=== PATIENT | female | born 2000 | race Caucasian/White ===

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

== ENCOUNTER → 2018-05-19 17:07 | Emergency (ER) | payer OTHER ==
[~2018-05-19 17:07] MED LIST changes: -Ibuprofen TAB* 600 MG PO ONE; +Iohexol 300* (CONTRAST) 10 ML SDV IV ONE; +Ketorolac INJ* 30 MG/ML 1 ML VIAL IV PUSH ONE; +NS 0.9% 1000 ML* 1,000 ML IV ONE
--- OUTSIDE RECORDS SUMMARY | 2018-05-19 17:38 | XMS REPORT | Continuity of Care Document ---
:2000 External Reference #:[id number] Author Name Fany Waddell, JENNY Address [address] [facility] [place] [address] Care Team Providers Name Role Phone Edward Locke MD Care Team Information Decal Maker Unavailable Edward Locke MD Primary Care Physician Unavailable Payers Type Date Identification Numbers Payment Provider Subscriber Policy Number: [id number] [facility] Morris Frye Group Number: [id number] [address] [address] PayID: [id number] [place] [address] Advance Directives Description No Information Available Problems Description No Information Family History Date Family Member(s) Problem(s) Comments Mother Heart Disease Mother Gallstones Mother Ulcerative Colitis Social History Type Date Description Comments Sex Unknown Education Highest level completed, 12th grade Marital Status Single Lives With Mother And Father Occupation [employer] Tobacco Use Start: Unknown "Social" Smoker 1-2 cigarettes a month, uses vape daily but not all day, just a puff or two every 3-4 hours - no interest in quitting ETOH Use Denies alcohol use Recreational Drug Use Marijuana socially occasionally for anxiety Tobacco Use Start: Unknown Patient is a former End: Unknown smoker Smoking Status Reviewed: 05/08/18 Patient is a former smoker Currently Active Patient is currently sexually active Condom Use Always Allergies, Adverse Reactions, Alerts Date Description Reaction Status Severity Comments 08/17/2017 Penicillins Anaphylaxis Active 08/17/2017 Bactrim Anaphylaxis Active 08/17/2017 Cephlasporins Anaphylaxis Active 08/17/2017 Lexapro loss of memory Active Medications Medication Date Status Form Strength Qnty SIG Indications Ordering Provider Prozac Active Capsules 10mg 30caps 1/2 tab F33.1 Fany Moran 018 by mouth JENNY Waddell x 2 weeks then 1 by mouth every day Doxycycline Hx Capsules 100mg 20caps one tab L03.311 Fany Moran Hyclate 018 - twice a JENNY Waddell day for 018 10 days Control Hx Unknown Pill 000 - 018 Medications Administered in Office Medication Date Status Form Strength Qnty SIG Indications Ordering Provider Brief Administered Injection Fany Moran Emotional/Beha 018 JENNY Waddell v Assessment W/ Scoring Doc Per Standard Inst Immunizations Description No Information Available Vital Signs Date Vital Result Comment 05/08/2018 5:47pm BP Systolic 104 mmHg BP Diastolic 64 mmHg Heart Rate 84 /min Body Temperature 98.3 F Respiratory Rate 18 /min Height 60.5 inches 5'0.50" Weight 220.00 lb BMI (Body Mass Index) 42.3 kg/m2 Body Mass Index Percentile 99 % Weight Percentile >97th Height Percentile 7 % 12/22/2017 5:06pm BP Systolic 118 mmHg BP Diastolic 60 mmHg Heart Rate 72 /min Body Temperature 98.2 F Respiratory Rate 16 /min Height 60.5 inches 5'0.50" Weight 214.00 lb BMI (Body Mass Index) 41.1 kg/m2 Body Mass Index Percentile 99 % Weight Percentile >97th Height Percentile 7 % 11/08/2017 4:19pm BP Systolic 118 mmHg BP Diastolic 64 mmHg Heart Rate 76 /min Body Temperature 98.6 F Respiratory Rate 16 /min Height 60.5 inches 5'0.50" Weight 217.00 lb BMI (Body Mass Index) 41.7 kg/m2 Body Mass Index Percentile 99 % Weight Percentile >97th Height Percentile 7 % 09/16/2017 4:07pm BP Systolic 130 mmHg BP Diastolic 68 mmHg Heart Rate 88 /min Body Temperature 97.9 F Respiratory Rate 17 /min Height 60.5 inches 5'0.50" Weight 217.25 lb BMI (Body Mass Index) 41.7 kg/m2 Body Mass Index Percentile 99 % Weight Percentile >97th Height Percentile 7 % 08/17/2017 8:34am BP Systolic 124 mmHg BP Diastolic 60 mmHg Heart Rate 78 /min Body Temperature 99.0 F Respiratory Rate 16 /min Height 60.5 inches 5'0.50" Weight 217.38 lb BMI (Body Mass Index) 41.7 kg/m2 Body Mass Index Percentile 99 % Weight Percentile >97th Height Percentile 7 % Results Test Date Facility Test Result H/L Range Note Laboratory test 11/08/2017 [facility] , negative finding (607)- - Serum Laboratory test 11/08/2017 [facility] ([facility]) TSH 4.76 mIU/L 0.50- 6.00 finding Free T4 0.93 ng/dL 0.75-1.54 Hepatitis Panel 09/16/2017 [facility] Hep A Ab, Positive Abnormal Negative 1 (5) [address] [facility] [place] [address] (607)- - HBsAg Screen Negative Negative Hep B Core Ab, Tot Negative Negative Hep B Surface Ab, Qual Reactive 2 Hep C Virus Ab 0.1 s/coratio 0.0-0.9 3 Laboratory test 09/16/2017 [facility] RPR Non Reactive Non Reactive finding [address] [place] [address] (607)- - Nuswab VG+, HSV 09/16/2017 [facility] HSV 1 Yen Negative Negative [address] [place] [address] (607)- - HSV 2 Yen Negative Negative Atopobium vaginae Low - 0 Score Bvab 2 Low - 0 Score Megasphaera 1 Low - 0 Score Sandra albicans, Yen Positive Abnormal Negative Sandra glabrata, Yen Negative Negative 4 Trich vag by Yen Negative Negative Chlamydia trachomatis, Yen Negative Negative Neisseria gonorrhoeae, Yen Negative Negative Urine Culture And 09/16/2017 [facility] Urine Culture SEE RESULT 5 Sensitivities BELOW Laboratory test 09/16/2017 [facility] HIV 1&2 Antibody NEG Negative finding (607)- - Screen (Fma) Ua - Non Micro 09/16/2017 [facility] Medicine Appearance CLEAR (a) (607)- - Color YELLOW Glucose, Urine (Fma/CMC/CTX) NEG Bilirubin NEG Ketones NEG SP Grav 1.025 Blood NEG PH 7.0 Protein NEG Urobil 0.2 Nitrite NEG Leukocytes (Fma/CMC/Centrex) NEG Laboratory test 08/25/2017 [facility] Troponin I 0.00 ng/mL <0.04 finding Aerobic Bacterial 08/17/2017 [facility] Aerobic Final report 6, 7 Culture [address] [place] [address] Culture (054)- - Result 1 Skin alexys isola <SEE NOTE> 8 1 2 SST 1 ORANGE APTIMA 2 Non Reactive: Inconsistent with immunity, less than 10 mIU/mL Reactive: Consistent with immunity, greater than 9.9 mIU/mL 3 Negative: < 0.8 Indeterminate: 0.8 - 0.9 Positive: > 0.9 The CDC recommends that a positive HCV antibody result be followed up with a HCV Nucleic Acid Amplification test (142711). 4 This test was developed and its performance characteristics determined by [facility]. It has not been cleared or approved by the Food and Drug Administration. The FDA has determined that such clearance or approval is not necessary. 5 SEE RESULT BELOW Name: QUINN FRYE : [address]: Fany Waddell NP Acct: [id number] Unit: [id number] AGE: 17 Location: [facility] Re09/16/17 SEX: F Status: REG REF SPEC: [id number] BRANDON: 09/16/17-[address]: Fany Waddell NP REQ: [id number] RECD: 09/16/17 STATUS: COMP _ SOURCE: URINE SPDESC: ORDERED: Urine Culture COMMENTS: [id number] URINE LERNER TUBE Procedure Result Reported Site Urine Culture Final 09/18/17- 1112 ML No growth of clinically significant organisms * ML - Main Lab . END OF REPORT DEPARTMENT OF PATHOLOGY, [address] [place] [address] Noah Perez M.D. Director [facility] # [id number] SRC:right hip wound 1 cult ure swab from right hip wo und 7 Source of Specimen: right hip wound 1 cult 8 Skin alexys isolated Source of Specimen: right hip wound 1 cult Procedures Date Code Description Status 08/17/2017 67826 Brief Emotional/Behav Assessment W/ Scoring Doc Per Completed Standard Inst Encounters Type Date Location Provider Dx Diagnosis Office Visit 12/22/2017 5:00p Main Office Regina Acuña, JENNY B07.0 Plantar wart Office Visit 11/08/2017 4:15p Main Office TEN Felder M54.5 Low back pain N92.6 Irregular menstruation, unspecified Office Visit 08/17/2017 8:45a Main Office Fany Moran F33.1 Major depressive WaddellJENNY disorder, recurrent, moderate F41.9 Anxiety disorder, unspecified L03.311 Cellulitis of abdominal wall Plan of Treatment 05/08/2018 - Fany Waddell, NPJ01.90 Acute sinusitis, unspecifiedComments: Supportive care: 1) Make sure you are resting. This is the only way the body can take the energy it needs to heal itself. 2) Fluids, fluids, fluids! - Drink a lot of water or other caffeine free, clearliquids - Use a humidifier in your room at night or perform steam inhalations (20-30 mins) three times a day- If tolerated, use a saline nasal spray to help clear out your sinuses 3) Cough and blow it out, the more you can get out of your system the better4) For throat pain: try using an adult dose ofchildren's Tylenol to help coat your throat and give you some pain relief. 5) Sleep with the head ofthe bed up6) Avoid cigarette smoke, caffeine, alcoholIf worsening - start Antibiotic, if not improving in 3-4 days, start antibiotic, if improving slowly daily, keep with the course and don't take the antibiotic. If you start the antibiotic we expect you to begin to feel better in 48-72 hours after starting antibiotic therapy, if you are not improving or begin to get worse, please contact the office to be seen again.R68.81 Early satietyComments:fiberwater intake goal: 80- 100ozincrease activity patient instructed to call back if condition failsto improve or worsens.F41.9 Anxiety disorder, unspecifiedComments:Prozac will take approximately 6 weeks to start seeing a significant effect. I am starting you on a low dose and we can work our way up from there. If concerning symptoms arise, please contact office.Follow up:6 monthsAllComments:~B_~U_Medication Management~b_~u_ Patient Understands medications he 's taking? Yes No Are there Barriers to Adherence? Yes No Has the patient been asked about herbal supplements and therapies, and OTC meds? Yes No ~B_~U_Care Plan~b_~u_1. Patient has been queried about patient's goals/preferences and functional/lifestyle goals at relevant visits. If relevant, describe: na2. Treatment goals as explained to the patient: above3. Are there barriers to meeting treatment goals? Yes No If Yes, please describe:4. Self- Management goals as described to the patient:Yes NoAs always, we strongly encourage a healthy diet and making physical activity a part of your every day life. If you have questions about how or where to start, please contact the office.Follow up:Please schedule a full annual visit at your earliest convenience
--- OUTSIDE RECORDS SUMMARY | 2018-05-19 17:38 | XMS REPORT | Continuity of Care Document ---
:2000 External Reference #:[id number] Author Name Fany Waddell, JENNY Address [address] [facility] [place] [address] Care Team Providers Name Role Phone Edward Locke MD Care Team Information Senior Reliability Engineer Unavailable Edward Locke MD Primary Care Physician Unavailable Payers Type Date Identification Numbers Payment Provider Subscriber Policy Number: [id number] [facility] Morris Thakur Group Number: [id number] [address] [address] PayID: [id number] [place] [address] Advance Directives Description No Information Available Problems [...] Form Strength Qnty SIG Indications Ordering Provider Doxycycline Active Tablets 100mg 20tabs one tab J01.90 Fany Luisa Hyclate 019 by mouth Bairon MATHEMATICAL PHYSICIST twice a day Prozac Active Capsules 10mg 30caps 1/2 tab F33.1 Fany Luisa 018 by mouth Waddell, MATHEMATICAL PHYSICIST x 2 weeks then 1 by mouth every day Doxycycline Hx Capsules 100mg 20caps one tab L03.311 Fany Luisa Hyclate 018 - twice a Waddell, MATHEMATICAL PHYSICIST day for 018 10 days Control 0 Hx Unknown Pill 000 - 018 Medications Administered in Office Medication Date Status Form Strength Qnty SIG Indications Ordering Provider Brief Administered Injection Fany Luisa Emotional/Beha 018 JENNY Waddell v Assessment W/ [...] Date Facility Test Result H/L Range Note Ua - Micro ([facility]) 05/08/2018 [facility] Appearance clear (607)- - Color yellow Glucose, Urine (Fma/CMC/CTX) negative Bilirubin negative Ketones negative SP Grav 1.020 Blood negative PH 6.0 Protein negative Urobil 0.2 Nitrite negative Leukocytes (Fma/CMC/Centrex) trace Hyaline <pending> /Lpf Granular <pending> /Lpf WBC (Fma,[facility]rex) <pending> RBC <pending> Mucus <pending> /Lpf Epith <pending> /Lpf Bacteria <pending> /Hpf Amorphous <pending> /Lpf Crystals, Fluid (Fma/CMC/CTX) <pending> Z#Comments <pending> Laboratory test 11/08/2017 [facility] , Serum negative finding (607)- - Laboratory test 11/08/2017 [facility] TSH 4.76 mIU/L 0.50-6.0 finding 0 Free T4 0.93 ng/dL 0.75-1.54 Hepatitis Panel 09/16/2017 [facility] Hep A Ab, Positive Abnormal Negative 1 (5) [address] [facility] [place] [address] (605)- - HBsAg Screen Negative Negative Hep B Core Ab, Tot Negative Negative Hep B Surface Ab, Qual Reactive 2 Hep C Virus Ab 0.1 s/coratio 0.0-0.9 3 Laboratory test 09/16/2017 [facility] RPR Non Reactive Non Reactive finding [address] [place] [address] (114)- - Nuswab VG+, HSV 09/16/2017 [facility] HSV 1 Yen Negative Negative [address] [place] [address] (602)- - HSV 2 Yen Negative Negative Atopobium vaginae Low - 0 Score Bvab 2 Low - 0 Score Megasphaera 1 Low - 0 Score Sandra albicans, Yen Positive Abnormal Negative Sandra glabrata, Yen Negative Negative 4 Trich vag by Yen Negative Negative Chlamydia trachomatis, Yen Negative Negative Neisseria gonorrhoeae, Yen Negative Negative Urine Culture And 09/16/2017 [facility] Urine Culture SEE RESULT 5 Sensitivities BELOW Laboratory test 09/16/2017 [facility] HIV 1&2 Antibody NEG Negative finding (607)- - Screen (Fma) Ua - Non Micro 09/16/2017 [facility] Appearance CLEAR (Fma) (607)- - Color YELLOW Glucose, Urine (Fma/CMC/CTX) NEG Bilirubin NEG Ketones NEG SP Grav 1.025 Blood NEG PH 7.0 Protein NEG Urobil 0.2 Nitrite NEG Leukocytes (a/[facility]) NEG Laboratory test 08/25/2017 [facility] Troponin I 0.00 ng/mL <0.04 finding Aerobic Bacterial 08/17/2017 [facility] Final report 6, 7 Culture [address] [facility] [place] [address] Culture (607)- - Result 1 Skin peggy isola <SEE NOTE> 8 1 2 SST 1 ORANGE APTIMA 2 Non Reactive: Inconsistent with immunity, less than 10 mIU/mL Reactive: Consistent with immunity, greater than 9.9 mIU/mL 3 Negative: < 0.8 Indeterminate: 0.8 - 0.9 Positive: > 0.9 The CDC recommends that a positive HCV antibody result be followed up with a HCV Nucleic Acid Amplification test (629919). 4 This test was developed and its performance characteristics determined by [facility]. It has not been cleared or approved by the Food and Drug Administration. The FDA has determined that such clearance or approval is not necessary. 5 SEE RESULT BELOW Name: SELAMJOSEFINA OLVERANOEMÍ Mcfarlane : [address]: Fany Waddell NP Acct: [id number] Unit: [id number] AGE: 17 Location: [facility] Re09/16/17 SEX: F Status: REG REF SPEC: [id number] BRANDON: 09/16/17-[address]: Fany Waddell NP REQ: [id number] RECD: 09/16/17 STATUS: COMP _ SOURCE: URINE SPDESC: ORDERED: Urine Culture COMMENTS: [id number] URINE LERNER TUBE Procedure Result Reported Site Urine Culture Final 09/18/17- 1112 ML No growth of clinically significant organisms * ML - Main Lab . END OF REPORT DEPARTMENT OF PATHOLOGY, [address] [place] [address] Noah Perez M.D. Director [facility] # [id number] 6 SRC:right hip wound 1 cult ure swab from right hip wo und 7 Source of Specimen: right hip wound 1 cult 8 Skin peggy isolated Source of Specimen: right hip wound 1 cult Procedures Date Code Description Status 08/17/2017 65035 Brief Emotional/Behav Assessment W/ Scoring Doc Per Completed Standard Inst Encounters Type Date Location Provider Dx Diagnosis Office Visit 12/22/2017 5:00p Main Office Regina Acuña NP B07.0 Plantar wart Office Visit 11/08/2017 4:15p Main Office TEN Felder M54.5 Low back pain N92.6 Irregular menstruation, unspecified Office Visit 08/17/2017 8:45a Main Office Fany Moran F33.1 Major depressive JENNY Waddell disorder, recurrent, moderate F41.9 Anxiety disorder, unspecified L03.311 Cellulitis of abdominal wall Plan of Treatment 05/08/2018 - Fany Waddell, NPJ01.90 Acute sinusitis, unspecifiedNew Medication:Doxycycline Hyclate 100 mg - one tab by mouth twice a dayComments: Supportive care: 1) Make sure you are [...] concerning symptoms arise, please contact office.Follow up:6 ufsjiyE93.998 Other abnormal findings in qceudH38.0 DysuriaAllComments:~B_~U_Medication Management~b_~u_ Patient Understands medications he 's taking? Yes No Are there Barriers to Adherence? Yes No Has the patient been asked about herbal supplements and therapies, and OTC meds? Yes No ~B_~U_Care Plan~b_~u_1. Patient has been queried about patient's goals/preferences and functional/ lifestyle goals at relevant visits. If relevant, describe: na2. Treatment goals as explained to the patient: above3. Are there barriers to meeting treatment goals? Yes No If Yes, please describe:4. Self-Management goals as described to the patient:Yes NoAs always, we strongly encourage a healthy diet and making physical activity a part of your every day life. If you have questions about how or where to start, please contact the office.Follow up: Please schedule a full annual visit at your earliest convenience
--- OUTSIDE RECORDS SUMMARY | 2018-05-19 17:38 | XMS REPORT | Continuity of Care Document ---
:2000 External Reference #:[id number] Author Name Fany Waddell, JENNY Address [address] [facility] [place] [address] Care Team Providers Name Role Phone Edward Locke MD Care Team Information Ancillary Services Manager Unavailable Edward Locke MD Primary Care Physician Unavailable Payers Type Date Identification Numbers Payment Provider Subscriber Policy Number: [id number] [facility] Morris Thakur Group Number: [id number] [address] [address] PayID: [id number] [place] [address] Advance Directives Description No Information Available Problems [...] Fany Luisa Hyclate 019 by mouth Bairon BETTING AGENCY MANAGER twice a day Prozac Active Capsules 10mg 30caps 1/2 tab F33.1 Fany Luisa 018 by mouth Waddell, BETTING AGENCY MANAGER x 2 weeks then 1 by mouth every day Doxycycline Hx Capsules 100mg 20caps one tab L03.311 Fany Luisa Hyclate 018 - twice a Waddell, BETTING AGENCY MANAGER day for 018 10 days Control 0 [...] H/L Range Note Ua - Micro (Fma) 05/09/2018 [facility] Appearance clear (607)- - Color yellow Glucose, Urine (Fma/CMC/CTX) negative Bilirubin negative Ketones negative SP Grav 1.020 Blood negative PH 6.0 Protein negative Urobil 0.2 Nitrite negative Leukocytes (Fma/CMC/[facility]) trace Hyaline <pending> /Lpf Granular <pending> /Lpf WBC (Fma,[facility]) <pending> RBC <pending> Mucus <pending> /Lpf Epith <pending> /Lpf Bacteria <pending> /Hpf Amorphous <pending> /Lpf Crystals, Fluid (Fma/CMC/CTX) <pending> Z#Comments <pending> Laboratory test 11/08/2017 [facility] , Serum negative finding (607)- - Laboratory test 11/08/2017 [facility] ([facility]) TSH 4.76 mIU/L 0.50-6.0 finding 0 Free T4 0.93 ng/dL 0.75-1.54 Hepatitis Panel 09/16/2017 [facility] Hep A Ab, Positive Abnormal Negative 1 (5) [address] [place] [address] (601)- - HBsAg Screen Negative Negative Hep B Core Ab, Tot Negative Negative Hep B Surface Ab, Qual Reactive 2 Hep C Virus Ab 0.1 s/coratio 0.0-0.9 3 Laboratory test 09/16/2017 [facility] RPR Non Reactive Non Reactive finding [address] [place] [address] (60)- - Nuswab VG+, HSV 09/16/2017 [facility] HSV 1 Yen Negative Negative [address] [place] [address] (600)- - HSV 2 Yen Negative Negative Atopobium vaginae Low - 0 Score Bvab 2 Low - 0 Score Megasphaera 1 Low - 0 Score Sandra albicans, Yen Positive Abnormal Negative Sandra glabrata, Yen Negative Negative 4 Trich vag by Yen Negative Negative Chlamydia trachomatis, Yen Negative Negative Neisseria gonorrhoeae, Yen Negative Negative Urine Culture And 09/16/2017 [facility] Urine Culture SEE RESULT 5 Sensitivities BELOW Laboratory test 09/16/2017 [facility] HIV 1&2 Antibody NEG Negative finding (607)- - Screen (Fma) Ua - Non Micro 09/16/2017 [facility] Appearance CLEAR (Fma) (607)- - Color YELLOW Glucose, Urine (Fma/CMC/CTX) NEG Bilirubin NEG Ketones NEG SP Grav 1.025 Blood NEG PH 7.0 Protein NEG Urobil 0.2 Nitrite NEG Leukocytes (a/[facility]) NEG Laboratory test 08/25/2017 [facility] Troponin I 0.00 ng/mL <0.04 finding Aerobic Bacterial 08/17/2017 [facility] Final report 6, 7 Culture [address] [place] [address] Culture (607)- - Result 1 Skin peggy [...] with a HCV Nucleic Acid Amplification test (335905). 4 This test was developed and its performance characteristics determined by [facility]. It has not been cleared or approved by the Food and Drug Administration. The FDA has determined that such clearance or approval is not necessary. 5 SEE RESULT BELOW Name: SELAMJOSEFINA OLVERANOEMÍ Mcfarlane : [address]: Fany Waddell NP Acct: [id number] Unit: [id number] AGE: 17 Location: [facility] Re09/16/17 SEX: F Status: REG REF SPEC: [id number] BRANDON: 09/16/17-[address]: Fany Waddell NP REQ: [id number] RECD: 09/16/17 STATUS: COMP _ SOURCE: URINE SPDESC: ORDERED: Urine Culture COMMENTS: [id number] URINE LERNER TUBE Procedure Result Reported Site Urine Culture Final 09/18/17- 1112 ML No growth of clinically significant organisms * ML - Main Lab . END OF REPORT DEPARTMENT OF PATHOLOGY, [address] [place] [address] Noah Perez M.D. Director [facility] # [id number] SRC:right hip wound 1 cult ure swab from right hip wo und 7 Source of Specimen: right hip wound 1 cult 8 Skin peggy isolated Source of Specimen: right hip wound 1 cult Procedures Date Code Description Status 08/17/2017 89144 Brief Emotional/Behav Assessment W/ Scoring Doc Per [...]
[2018-05-19 20:06] LABS: ABS Basophils 0.2 10^3/ul (0-0.2); ABS Eosinophils 0.3 10^3/ul (0-0.6); ABS Lymphocytes 3.2 10^3/ul (1.0-4.8); ABS Monocytes 0.8 10^3/ul (0-0.8); ABS Neutrophils 11.4 10^3/ul (1.5-7.7); ABS Nucleated RBC 0 10^3/ul; Eosinophil % 1.9 %; Hematocrit 41 % (35-47); Hemoglobin 13.3 g/dl (12.0-16.0); Lymphocyte % 20.1 %; Mean Corpuscular HGB Conc 32 g/dl (31-36); Mean Corpuscular Hemoglobin 26 pg (27-31); Mean Corpuscular Volume 81 fL (80-97); Nucleated Red Blood Cells % 0.1; Platelet Count 360 10^3/ul (150-450); Red Blood Count 5.09 10^6/ul (4.00-5.40); Red Cell Distribution Width 14 % (10.5-15); White Blood Count 15.8 10^3/ul (3.5-10.8)
[2018-05-19 20:26] LABS: ALT 16 U/L (7-52); AST 17 U/L (13-39); Albumin 4.6 g/dL (3.2-5.2); Albumin/Globulin Ratio 1.3 (1-3); Alkaline Phosphatase 99 U/L (34-104); Anion Gap 9 mmol/L (2-11); BUN/Creatinine Ratio 14.7 (8-20); Blood Urea Nitrogen 10 mg/dL (6-24); CO2 Carbon Dioxide 26 mmol/L (22-32); Calcium 9.9 mg/dL (8.6-10.3); Chloride 102 mmol/L (101-111); Creatine Kinase 100 U/L (10-223); EGFR African American 134.9 (>60); EGFR Non-African American 111.5 (>60); Globulin 3.5 g/dL (2-4); Glucose 89 mg/dL (70-100); Sodium 137 mmol/L (135-145); Total Protein 8.1 g/dL (6.4-8.9)
[2018-05-19 20:30] LABS: CKMB ng/mL 1.3 ng/mL (0.6-6.3)
[2018-05-19 20:33] LABS: HCG Pregnancy < 0.60 mIU/mL
--- NOTE | 2018-05-19 22:28 | ED ---
GI/ HPI - HPI Summary HPI Summary: 17 year old female presents with abdominal pain since yesterday. She notes nausea and vomiting. States that the pain radiates up her chest into her right shoulder. She admits to occasional shortness breath. She is on control. No family history of blood clots. She states the pain is sharp in nature. She states that food makes it worse. She denies any burning sensation in her chest. pain doesn't change when she vomits. No diarrhea. No urinary symptoms. No flank pain. No abnormal vaginal discharge. Never had this pain before. She's had her appendix removed. - History of Current Complaint Chief Complaint: EDNauseaVomitDiarrh Time Seen by Provider: 05/19/18 22:11 Stated Complaint: CHEST/ABD PAIN Hx Last Menstrual Period: 2 weeks ago Pain Intensity: 10 - Allergy/Home Medications Allergies/Adverse Reactions: Allergies Allergy/AdvReac Type Severity Reaction Status Date / Time amoxicillin Allergy Anaphylatic Verified 07/19/17 09:46 Shock Cephalosporins Allergy Anaphylatic Verified 07/19/17 09:46 Shock Penicillins Allergy Anaphylatic Verified 07/19/17 09:46 Shock PMH/Surg Hx/FS Hx/Imm Hx Endocrine/Hematology History: Denies: Hx Anticoagulant Therapy, Hx Diabetes, Other Endocrine/Hematological Disorders Cardiovascular History: Denies: Hx Hypertension, Other Cardiovascular Problems/Disorders Respiratory History: Reports: Hx Asthma - RESCUE INHALER- ALBUTEROL Denies: Other Respiratory Problems/Disorders GI History: Denies: Other GI Disorders History: Denies: Hx Renal Disease, Other Problems/Disorders Musculoskeletal History: Denies: Other Musculoskeletal History Sensory History: Denies: Hx Contacts or Glasses - READING, Hx Hearing Aid, Other Sensory Impairments Opthamlomology History: Denies: Hx Contacts or Glasses - READING, Other Sensory Impairments Neurological History: Denies: Other Neuro Impairments/Disorders Psychiatric History: Denies: Other Psychiatric Issues/Disorders - Surgical History Surgery Procedure, Year, and Place: Tonsillectomy & Adnoidectomy 2002. APPENDECTOMY- 2013 Hx Anesthesia Reactions: No Infectious Disease History: No Infectious Disease History: Denies: Traveled Outside the [place] in Last 30 Days - Family History Known Family History: Positive: Other - GERD; Ulcerative colitis - mother Family History: no family malignant hyperthermia and family anesthesia reaction - Social History Alcohol Use: None Hx Substance Use: No Substance Use Type: Reports: None Hx Tobacco Use: No Smoking Status (MU): Never Smoked Tobacco Review of Systems Negative: Fever Positive: Chest Pain Positive: Shortness Of Breath Positive: Abdominal Pain, Vomiting, Nausea. Negative: Diarrhea All Other Systems Reviewed And Are Negative: Yes Physical Exam Triage Information Reviewed: Yes Vital Signs On Initial Exam: Initial Vitals Temp Pulse Resp BP Pulse Ox 97.6 F 93 18 138/89 98 05/19/18 17:10 05/19/18 17:10 05/19/18 17:10 05/19/18 17:10 05/19/18 17:10 Vital Signs Reviewed: Yes Appearance: Positive: Well-Appearing Skin: Positive: Warm, Dry Head/Face: Positive: Normal Head/Face Inspection Eyes: Positive: Normal, EOMI, JULIO, Conjunctiva Clear ENT: Positive: Normal ENT inspection, Pharynx normal, TMs normal Respiratory/Lung Sounds: Positive: Clear to Auscultation, Breath Sounds Present , Other - nontender chest wall Cardiovascular: Positive: Normal, RRR Abdomen Description: Positive: Soft, Other: - tenderness RUQ Bowel Sounds: Positive: Present Musculoskeletal: Positive: Normal Neurological: Positive: Normal Psychiatric: Positive: Normal Diagnostics - Vital Signs Vital Signs Temp Pulse Resp BP Pulse Ox 05/19/18 19:59 98.3 F 95 16 146/94 100 05/19/18 17:10 97.6 F 93 18 138/89 98 - Laboratory Lab Results: Lab Results 05/19/18 05/19/18 05/19/18 Range/Units 19:43 19:43 19:43 WBC 15.8 H (3.5-10.8) 10^3/ul RBC 5.09 (4.00-5.40) 10^6/ul Hgb 13.3 (12.0-16.0) g/dl Hct 41 (35-47) % MCV 81 (80-97) fL MCH 26 L (27-31) pg MCHC 32 (31-36) g/dl RDW 14 (10.5-15) % Plt Count 360 (150-450) 10^3/ul MPV 9.0 (7.4-10.4) fL Neut % (Auto) 72.0 % Lymph % (Auto) 20.1 % Granite % (Auto) 5.0 % Eos % (Auto) 1.9 % Baso % (Auto) 1.0 % Absolute Neuts (auto) 11.4 H (1.5-7.7) 10^3/ul Absolute Lymphs (auto) 3.2 (1.0-4.8) 10^3/ul Absolute Monos (auto) 0.8 (0-0.8) 10^3/ul Absolute Eos (auto) 0.3 (0-0.6) 10^3/ul Absolute Basos (auto) 0.2 (0-0.2) 10^3/ul Absolute Nucleated RBC 0 10^3/ul Nucleated RBC % 0.1 Sodium 137 (135-145) mmol/L Potassium 4.0 (3.5-5.0) mmol/L Chloride 102 (101-111) mmol/L Carbon Dioxide 26 (22-32) mmol/L Anion Gap 9 (2-11) mmol/L BUN 10 (6-24) mg/dL Creatinine 0.68 (0.51-0.95) mg/dL Est GFR ( Amer) 134.9 (>60) Est GFR (Non-Af Amer) 111.5 (>60) BUN/Creatinine Ratio 14.7 (8-20) Glucose 89 (70-100) mg/dL Lactic Acid 0.8 (0.5-2.0) mmol/L Calcium 9.9 (8.6-10.3) mg/dL Total Bilirubin 0.40 (0.2-1.0) mg/dL AST 17 (13-39) U/L ALT 16 (7-52) U/L Alkaline Phosphatase 99 (34-104) U/L Total Creatine Kinase 100 (10-223) U/L CK-MB (CK-2) 1.3 (0.6-6.3) ng/mL Troponin I 0.00 (<0.04) ng/mL C-Reactive Protein Pending Total Protein 8.1 (6.4-8.9) g/dL Albumin 4.6 (3.2-5.2) g/dL Globulin 3.5 (2-4) g/dL Albumin/Globulin Ratio 1.3 (1-3) Lipase (11.0-82.0) U/L Beta HCG, Quant < 0.60 mIU/mL 05/19/18 Range/Units 19:43 WBC (3.5-10.8) 10^3/ul RBC (4.00-5.40) 10^6/ul Hgb (12.0-16.0) g/dl Hct (35-47) % MCV (80-97) fL MCH (27-31) pg MCHC (31-36) g/dl RDW (10.5-15) % Plt Count (150-450) 10^3/ul MPV (7.4-10.4) fL Neut % (Auto) % Lymph % (Auto) % Granite % (Auto) % Eos % (Auto) % Baso % (Auto) % Absolute Neuts (auto) (1.5-7.7) 10^3/ul Absolute Lymphs (auto) (1.0-4.8) 10^3/ul Absolute Monos (auto) (0-0.8) 10^3/ul Absolute Eos (auto) (0-0.6) 10^3/ul Absolute Basos (auto) (0-0.2) 10^3/ul Absolute Nucleated RBC 10^3/ul Nucleated RBC % Sodium (135-145) mmol/L Potassium (3.5-5.0) mmol/L Chloride (101-111) mmol/L Carbon Dioxide (22-32) mmol/L Anion Gap (2-11) mmol/L BUN (6-24) mg/dL Creatinine (0.51-0.95) mg/dL Est GFR ( Amer) (>60) Est GFR (Non-Af Amer) (>60) BUN/Creatinine Ratio (8-20) Glucose (70-100) mg/dL Lactic Acid (0.5-2.0) mmol/L Calcium (8.6-10.3) mg/dL Total Bilirubin (0.2-1.0) mg/dL AST (13-39) U/L ALT (7-52) U/L Alkaline Phosphatase (34-104) U/L Total Creatine Kinase (10-223) U/L CK-MB (CK-2) (0.6-6.3) ng/mL Troponin I (<0.04) ng/mL C-Reactive Protein Total Protein (6.4-8.9) g/dL Albumin (3.2-5.2) g/dL Globulin (2-4) g/dL Albumin/Globulin Ratio (1-3) Lipase 30 (11.0-82.0) U/L Beta HCG, Quant mIU/mL Result Diagrams: 05/19/18 19:43 05/19/18 19:43 Lab Statement: Any lab studies that have been ordered have been reviewed, and results considered in the medical decision making process. - CT abd CT Interpretation Completed By: Radiologist Summary of CT Findings: IMPRESSION: 1. Right ovarian cyst measuring 3.7 x 4.9 x 3.5 cm, new since 07/19/2017. 2. Otherwise negative CT abdomen/pelvis which is otherwise unchanged prior. study. - Ultrasound No standard instances Ultrasound Interpretation Completed By: Radiologist Summary of Ultrasound Findings: IMPRESSION: 1. Borderline hepatomegaly with fatty infiltration. 2. Otherwise negative right upper quadrant sonogram. No gallstones. - EKG No standard instances Cardiac Rate: NL EKG Rhythm: Sinus Rhythm Summary of EKG Findings: sinus rhythm Re-Evaluation - Re-Evaluation First Eval Re-Evaluation Time: 00:00 Change: Improved Comment: feeling better, discussed getting at CT as u/s normal. GIGU Course/Dx - Course Course Of Treatment: 17 year old female presents with abdominal pain since yesterday. She notes nausea and vomiting. States that the pain radiates up her chest into her right shoulder. She admits to occasional shortness breath. She is on control. No family history of blood clots. She states the pain is sharp in nature. She states that food makes it worse. She denies any burning sensation in her chest. pain doesn't change when she vomits. No diarrhea. No urinary symptoms. No flank pain. No abnormal vaginal discharge. Never had this pain before. She's had her appendix removed. On exam tenderness right upper quadrant. White blood cell count 15. CRP normal. gallbladder ultrasound normal. Troponin 0. D-dimer negative. EKG shows sinus rhythm. With symptoms will get a CT. CT shows ovarian cyst. discussed could be gastritis causing symptoms and to try antacid or could be viral sydrome. told to follow up with primary. patient understand and agrees with plan. - Diagnoses Differential Diagnoses - Female: Cholelithiasis, Cholecystitis, Gastroenteritis (Viral), Gastroenteritis (Bacterial) Provider Diagnoses: Chest pain, Abdominal pain, Vomiting Discharge - Sign-Out/Discharge Documenting (check all that apply): Patient Departure - Discharge Plan Condition: Good Disposition: HOME Prescriptions: Ondansetron ODT TAB* [Zofran 4 MG Odt TAB*] 4 mg PO Q6H PRN #12 tab.odt PRN Reason: Nausea Patient Education Materials: Abdominal Pain (ED) Referrals: Dirk Lopez MD [Primary Care Provider] - Additional Instructions: Drink small amounts of fluid as tolerated When able to eat follow BRAT diet: Bananas, rice, applesauce, toast take zofran every 6 hours as needed for nausea Take ibuprofen or Tylenol for pain as needed every 6 hours Follow up with primary within 5 days Return to ED if develop any new or worsening symptoms - Billing Disposition and Condition Condition: GOOD Disposition: Home
[2018-05-19 22:38] LABS: C Reactive Protein 6.09 mg/L (<8.01)
[2018-05-20 01:49] VITALS: BP 127/82
== END | disposition home or self-care (01) ==
LOC: ED 17:07
DX: R07.89 Other chest pain (principal); R10.11 Right upper quadrant pain; R11.10 Vomiting, unspecified; N83.201 Unspecified ovarian cyst, right side; J45.909 Unspecified asthma, uncomplicated; Z88.1 Allergy status to other antibiotic agents; Z88.0 Allergy status to penicillin
CPT/HCPCS: 36415; 74177; 76705; 80053; 82550; 82553; 83605; 83690; 84484; 84702; 85025; 85379; 86140; 93005; 96374; 99283; J1885; Q9967

== ENCOUNTER 2019-04-23 09:49 | Emergency (ER) | payer BC, OTHER ==
--- NOTE | 2019-04-23 09:57 | ED ---
Influenza-Like Illness - HPI Summary HPI Summary: Patient is a 18 y/o F presenting to the ED for a chief complaint of facial numbness and paresthesia. Patient is present with her boyfriend. Patient notes that she was placed on doxycycline and codeine on 04/19/19 after being diagnosed with a sinus infection by her PCP. She reports having the sinus infection for 2 weeks before seeing her PCP. She now complains of fever of 101 F , facial numbness and paresthesia, and nausea and vomiting for the last 2 days that she attributes to the doxycycline she is taking. She states the facial numbness and paresthesia began at 06:00 on 04/23/19 that she describes as a pressure sensation. Patient denies diarrhea, rash, weakness on one side of the body, or slurred speech. She reports taking doxycycline in the past without similar symptoms. PMHx is significant for recurrent sinus infections, but she admits a PSHx of appendectomy, sinus surgery, and adenoidectomy. Patient denies tobacco, alcohol, or drug use. She has not seen an ENT provider in several years. - History of Current Complaint Chief Complaint: EDFluSymptoms Time Seen by Provider: 04/23/19 09:54 Hx Obtained From: Patient Onset/Duration: Sudden Onset, Still Present Severity: Moderate Associated Signs & Symptoms: Fever - In vitals, 98.0 F, Vomiting - Allergy/Home Medications Allergies/Adverse Reactions: Allergies Allergy/AdvReac Type Severity Reaction Status Date / Time amoxicillin Allergy Anaphylatic Verified 11/16/18 12:44 Shock Cephalosporins Allergy Anaphylatic Verified 11/16/18 12:44 Shock Penicillins Allergy Anaphylatic Verified 11/16/18 12:44 Shock PMH/Surg Hx/FS Hx/Imm Hx Previously Healthy: Yes Endocrine/Hematology History: Denies: Hx Anticoagulant Therapy, Hx Diabetes, Other Endocrine/Hematological Disorders Cardiovascular History: Denies: Hx Hypertension, Hx Pacemaker/ICD, Other Cardiovascular Problems/ Disorders Respiratory History: Reports: Hx Asthma - RESCUE INHALER- ALBUTEROL Denies: Other Respiratory Problems/Disorders GI History: Denies: Other GI Disorders History: Denies: Hx Renal Disease, Other Problems/Disorders Musculoskeletal History: Denies: Other Musculoskeletal History Sensory History: Denies: Hx Contacts or Glasses - READING, Hx Legally Blind, Hx Deafness, Hx Hearing Aid, Other Sensory Impairments Opthamlomology History: Denies: Hx Contacts or Glasses - READING, Hx Legally Blind, Other Sensory Impairments EENT History: Denies: Hx Deafness Neurological History: Denies: Other Neuro Impairments/Disorders Psychiatric History: Reports: Hx Panic Disorder - ANXIETY Denies: Other Psychiatric Issues/Disorders - Surgical History Surgical History: Yes Surgery Procedure, Year, and Place: Tonsillectomy & Adnoidectomy 2001. APPENDECTOMY- 2013. SINUS SURGERY 2012 Hx Anesthesia Reactions: No Infectious Disease History: No Infectious Disease History: Denies: Traveled Outside the [place] in Last 30 Days - Family History Known Family History: Positive: Other - GERD; Ulcerative colitis - mother Family History: no family malignant hyperthermia and family anesthesia reaction - Social History Occupation: Employed Full-time Alcohol Use: None Hx Substance Use: No Substance Use Type: Reports: None Hx Tobacco Use: No Smoking Status (MU): Never Smoked Tobacco Review of Systems Positive: Fever - In vitals, 98.0 F Positive: Vomiting, Nausea. Negative: Diarrhea Negative: Rash Positive: Paresthesia - Facial, Numbness - Facial. Negative: Weakness, Slurred Speech All Other Systems Reviewed And Are Negative: Yes Physical Exam - Summary Physical Exam Summary: Constitutional: Well-developed, Well-nourished, Alert. (-) Distressed Skin: Warm, Dry HENT: Normocephalic; Atraumatic Eyes: Conjunctiva normal Neck: Musculoskeletal ROM normal neck. (-) JVD, (-) Stridor, (-) Tracheal deviation Cardio: Rhythm regular, rate normal, Heart sounds normal; Intact distal pulses; Radial pulses are 2+ and symmetric. (-) Murmur Pulmonary/Chest wall: Effort normal. (-) Respiratory distress, (-) Wheezes, (-) Rales Abd: Soft, (-) tenderness, (-) Distension, (-) Guarding, (-) Rebound Musculoskeletal: (-) Edema Lymph: (-) Cervical adenopathy Neuro: Alert, Oriented x3. Decreased sensation from the forehead to the chin, bilaterally. NIH scale: 0. Psych: Mood and affect Normal Triage Information Reviewed: Yes Vital Signs On Initial Exam: Initial Vitals Temp Pulse Resp BP Pulse Ox 98.0 F 101 18 145/97 97 04/23/19 09:50 04/23/19 09:50 04/23/19 09:50 04/23/19 09:50 04/23/19 09:50 Vital Signs Reviewed: Yes Procedures - Sedation Patient Received Moderate/Deep Sedation with Procedure: No Diagnostics - Vital Signs Vital Signs Temp Pulse Resp BP Pulse Ox 04/23/19 09:50 98.0 F 101 18 145/97 97 - Laboratory Lab Statement: Any lab studies that have been ordered have been reviewed, and results considered in the medical decision making process. Flu Symptom Course/Dx - Course Course Of Treatment: Patient is here with numbness to her entire face. Patient has a normal neurologic exam outside of the generalized numbness. Patient's lesion is consistent with anything intracranial injury is overall well- appearing. Patient was encouraged follow-up with primary care doctor. - Diagnoses Provider Diagnoses: Facial numbness, Sinus infection Discharge ED - Sign-Out/Discharge Documenting (check all that apply): Patient Departure - Discharge - Discharge Plan Condition: Stable Disposition: HOME Prescriptions: Ondansetron TAB* [Zofran 4 MG Tab*] 4 mg PO Q8HR PRN #12 tab PRN Reason: Vomiting Patient Education Materials: Paresthesia (ED) Forms: *Work Release Referrals: Dirk Lopez MD [Primary Care Provider] - Additional Instructions: PLEASE RETURN TO EMERGENCY DEPARTMENT FOR ANY WEAKNESS ANYWHERE, CHANGES IN VISION, SENSATION CHANGES, NECK STIFFNESS, OR NEW OR WORSENING SYMPTOMS. Please follow up with your primary care physician. Please make all follow-ups in 1-3 days unless I advise you otherwise. Take your prescribed nausea medication if you have nausea with your doxycycline. - Billing Disposition and Condition Condition: STABLE Disposition: Home - Attestation Statements Document Initiated by Alexandro: Yes Documenting Scribe: Aster Seals Provider For Whom Alexandro is Documenting (Include Credential): Misael Campbell MD Scribe Attestation: Aster Elder, scribed for Misael Campbell MD on 04/23/19 at 1900. Scribe Documentation Reviewed: Yes Provider Attestation: The documentation as recorded by the Aster eden accurately reflects the service I personally performed and the decisions made by me, Misael Campbell MD Status of Scribe Document: Viewed NIH Scale - NIH Scale Level of Consciousness: Alert/Keenly Responsive Ask Patient the Month and His/Her Age: Both Correct Ask Pt to Open/Close Eyes and Supervisor Frame Sample And Pattern/Release Non-Paretic Hand: Both Correctly Best Gaze (Only Horizontal Eye Movement): Normal Visual Field Testing: No Visual Loss Facial Paresis-Pt to Smile & Close Eyes or Grimace Symmetry: Normal/Symmetrical Motor Function - Right Arm: No Drift-Holds 10 Seconds Motor Function - Left Arm: No Drift-Holds 10 Seconds Motor Function - Right Leg: No Drift-Holds 10 Seconds Motor Function - Left Leg: No Drift-Holds 10 Seconds Limb Ataxia-Must be out of Proportion to Weakness Present: Absent Sensory (Use Pinprick to Test Arms/Legs/Trunk/Face): Normal Best Language (Describe Picture, Name Items): No Aphasia Dysarthria (Read Several Words): Normal Extinction and Inattention: No Abnormality Total Score: 0
[2019-04-23 10:53] VITALS: BP 140/97
== END 2019-04-23 10:52 | disposition home or self-care (01) ==
LOC: ED 09:49
DX: R20.0 Anesthesia of skin (principal); J32.9 Chronic sinusitis, unspecified; J45.909 Unspecified asthma, uncomplicated; F41.9 Anxiety disorder, unspecified; Z90.89 Acquired absence of other organs; Z88.0 Allergy status to penicillin; Z88.1 Allergy status to other antibiotic agents
CPT/HCPCS: 99282

== ENCOUNTER 2019-05-07 13:58 | Emergency (ER) | payer BC, OTHER ==
--- NOTE | 2019-05-07 14:11 | UC ---
Dizzy HPI HPI Summary: 18 yo female presents with feelings that her heart is racing and dizziness. She was seen in the ER on 04/23 for generalized feelings of facial numbness and was advised to f/u with her PCP. Today she tells me that around 1215 she was standing in line at [employer] and felt lightheaded, faint, and hot -- like she was going to "pass out". 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 After eating she began to feel shaky and had blurry vision. Over the last 20minutes her shakiness has gotten worse. She states that her torso, chest , neck, and arms all feel numb. Mother has a hx of SVT. Pt denies headache, neck pain, SOB, chest pain, abdominal pain, n/v/d/c, dysuria, back pain. - History Of Current Complaint Stated Complaint: HIGH HEART RATE, DIZZY, Time Seen by Provider: 05/07/19 14:10 Hx Obtained From: Patient Hx Last Menstrual Period: 2 weeks ago Onset/Duration: Sudden Onset Severity Initially: Mild Severity Currently: Moderate - Allergies/Home Medications Allergies/Adverse Reactions: Allergies Allergy/AdvReac Type Severity Reaction Status Date / Time amoxicillin Allergy Anaphylatic Verified 05/07/19 14:25 Shock Cephalosporins Allergy Anaphylatic Verified 05/07/19 14:25 Shock Penicillins Allergy Anaphylatic Verified 05/07/19 14:25 Shock Home Medications: Home Medications NK [No Home Medications Reported] 05/07/19 [History Confirmed 05/07/19] PMH/Surg Hx/FS Hx/Imm Hx Psychological History: Anxiety Other History Of: Negative For: Anticoagulant Therapy - Surgical History Surgical History: Yes Surgery Procedure, Year, and Place: Tonsillectomy & Adnoidectomy 2002. APPENDECTOMY- 2013. SINUS SURGERY 2013 - Family History Known Family History: Positive: Other - GERD; Ulcerative colitis - mother Family History: no family malignant hyperthermia and family anesthesia reaction - Social History Lives: With Family Alcohol Use: None Substance Use Type: None Smoking Status (MU): Never Smoked Tobacco Review of Systems All Other Systems Reviewed And Are Negative: No Constitutional: Positive: Negative Skin: Positive: Negative Eyes: Positive: Negative ENT: Positive: Negative Respiratory: Positive: Negative Cardiovascular: Positive: Negative Gastrointestinal: Positive: Negative Genitourinary: Positive: Negative Motor: Positive: Negative Neurovascular: Positive: Negative Musculoskeletal: Positive: Negative Neurological: Positive: Paresthesia, Other - Near-syncope Psychological: Positive: Negative Physical Exam - Summary Physical Exam Summary: GENERAL: NAD. WDWN. No pain distress. SKIN: No rashes, sores, or open wounds. HEENT: Head: AT/NC Eyes: PERRLA. EOM intact. Conjunctiva clear without inflammation or discharge. Ears: Hearing grossly normal. TMs intact, no bulging, erythema, or edema. Nose: Nasal mucosa pink and moist. NTTP maxillary and frontal sinus. Throat: Posterior oropharynx without exudates, erythema, or tonsillar enlargement. Uvula midline. NECK: Supple. Nontender. No lymphadenopathy. CHEST: CTAB. No r/r/w. No accessory muscle use. Breathing comfortably and in no distress. CV: RRR. Pulses intact. Brisk cap refill. ABDOMEN: Soft. NTTP. No distention or guarding. No CVA tenderness. Bowel sounds present MSK: FROM and 5/5 strength throughout. No edema. NEURO: Alert. PSYCH: Age appropriate behavior. Triage Information Reviewed: Yes Vital Signs: Vital Signs: Temp Pulse Resp BP Pulse Ox 98.7 F 89 18 116/60 99 05/07/19 14:21 05/07/19 14:21 05/07/19 14:21 05/07/19 14:21 05/07/19 14:21 Laboratory Tests 05/07/19 14:28 POC Glucose (mg/dL) 111 H Vital Signs Reviewed: Yes Diagnostics - EKG Summary of EKG Findings: 91bpm NSR. No STEMI as read by Dr. Cerna. Dizzy Course/Dx - Course Course Of Treatment: EKG as above. POC glucose 111. Exam WNL. Given her worsening symptoms, near-syncope, and family hx of SVT --- recommend going to the ED for further evaluation. Pt's mother with her can drive her. - Differential Dx/Diagnosis Provider Diagnosis: Near syncope Discharge ED - Sign-Out/Discharge Documenting (check all that apply): Patient Departure All imaging exams completed and their final reports reviewed: No Studies - Discharge Plan Condition: Stable Disposition: HOME-RECOMMEND TO ED Referrals: Dirk Lopez MD [Primary Care Provider] - Additional Instructions: Please go to the ER for further evaluation of your near-syncope - Billing Disposition and Condition Condition: STABLE Disposition: Home-Recommend to ED - Attestation Statements Provider Attestation: I was available for consult. This patient was seen by the NOEL. The patient was not presented to, seen by, or examined by me. -Melissa
[2019-05-07 14:24] VITALS: BP 116/60
== END 2019-05-07 14:51 | disposition home health service (06) ==
LOC: UCEAST 13:58
DX: R55 Syncope and collapse (principal); R20.2 Paresthesia of skin; Z88.0 Allergy status to penicillin; Z88.1 Allergy status to other antibiotic agents
CPT/HCPCS: 93005; 99212; G0463